=== PATIENT | female | born 1935 ===

== ENCOUNTER 2018-09-16 12:09 | Outpatient (CLI) | payer OTHER ==
[~2018-09-16] VITALS: Ht 162.6 cm; Wt 67.1 kg
== END 2018-09-16 12:25 | disposition home or self-care (01) ==
LOC: OFIC 805 12:09
DX: S02.2XXA Fracture of nasal bones, initial encounter for closed fracture (principal); G40.89 Other seizures; J32.8 Other chronic sinusitis